=== PATIENT | female | born 2000 | race African-American/Black ===

== ENCOUNTER 2025-01-23 10:19 | Emergency (ER) | payer BC, MEDICAID ==
[~2025-01-23] VITALS: Ht 172.7 cm; Wt 75.3 kg
[2025-01-23 11:09] LABS: CALCIUM, SERUM 8.8 mg/dL (8.5-10.1); CREATININE 1.0 mg/dL (0.6-1.3); PLATELET COUNT (AUTO) 357 K/uL (150-450); RED BLOOD CELL COUNT(AUTO) 5.83 MIL/uL (4.0-5.2); RED CELL DISTRIBUTION WIDTH 20.3 % (11.5-15.0); SODIUM SERUM 140.0 mmol/L (136-145); UREA NITROGEN, BLOOD 13.0 mg/dL (7-18); WHITE BLOOD COUNT (AUTO) 4.2 K/uL (4.3-11.0)
[2025-01-23 11:25] LABS: PREGNANCY TEST SERUM QUAN 1.0 mIU/mL (0-6)
[2025-01-23 12:56] VITALS: BP 121/82; TEMP 98.5; O2SAT 100
== END 2025-01-23 12:57 | disposition home or self-care (01) ==
LOC: ER 10:24
DX: N93.8 Other specified abnormal uterine and vaginal bleeding (principal); E28.2 Polycystic ovarian syndrome; R10.2 Pelvic and perineal pain; Z60.2 Problems related to living alone
CPT/HCPCS: 36415; 76856-TC; 80048-TC; 84702-TC; 85025-TC

== ENCOUNTER 2025-02-18 17:34 | Emergency (ER) | payer MEDICAID ==
[~2025-02-18] VITALS: Ht 172.7 cm; Wt 74.8 kg
[2025-02-18 17:45] VITALS: BP 141/87; TEMP 99.1
[2025-02-18] MEDS ORDERED: IBUP-1490 PO (18:05)
[2025-02-18 18:24] VITALS: O2SAT 99
== END 2025-02-18 18:25 | disposition home or self-care (01) ==
LOC: ER 17:41
DX: G56.21 Lesion of ulnar nerve, right upper limb (principal); Z60.2 Problems related to living alone